=== PATIENT | male | born 1975 | race Caucasian/White ===

== ENCOUNTER 2023-08-10 12:26 | Inpatient (IN) | payer BC, SELFPAY ==
[2023-08-10] VITALS (9 sets, daily range): BP systolic 92–139; BP diastolic 59–84; BMI 33.9; BMI 33.8
--- NOTE | 2023-08-10 08:47 | EDRN ---
Dr. Gomez in room w/ pt.
--- NOTE | 2023-08-10 08:54 | ED.GENMED ---
History of Present Illness
General
Chief Complaint: Abdominal Pain
Source: patient and spouse
Exam Limitations: none
Time Seen by Provider: 08/10/23 08:42
Nursing documentation reviewed up to this point in time: agreed with
Travel History
Have you had any contact with someone who has COVID-19?: No
Do you have any symptoms of coronavirus? Fever > 100 degrees, chills, cough, shortness of breath, sore throat, loss of taste or smell, muscle aches, or headache?: No
History of Present Illness
History of Present Illness:
48-year-old male limited past medical history social drinker no prior abdominal surgeries, 48 hours fever chills nausea did have some loose bowel movement, with lower abdominal cramping mild shortness of breath, few months ago he had some blood in
his stool which he contributed to taking his zinc he stopped zinc and his blood in his stool likewise stopped, did not seek any formal medical treatment or evaluation for the bloody stools,
No sick contacts, he is accompanied by his spouse
Past History
Past History
ED Past Medical History: None
ED Past Surgical History: Negative Appendectomy, Bowel resection, Cardiac or Cholecystectomy
Social History
Tobacco: Non-smoker
Alcohol: Occasional
Drug: None
Personal:
Living: with family
Employment: Employed
Review of Systems
Review of Systems
Constitutional: Reports fever, fatigue and chills
Respiratory: Reports trouble breathing
Cardiac: Reports no symptoms
ABD/GI: Reports abdominal pain, nausea, vomiting, diarrhea and anorexia
: Reports no symptoms
Musculoskeletal: Reports no symptoms
Phy Exam
Physical Exam
Physical Exam:
Physical Exam
General: 48 male febrile looks uncomfortable
Neck: Dry lips
Heart: Tachycardia
Lungs: Faint crackle at the right
Abdomen: Tender in the left greater than right lower abdomen no guarding or
Neuro: alert and oriented. no focal neurological deficits
Skin: no rash
Psychiatric: well kept. interactive and cooperative
Extremities: no edema. no calf tenderness.
Course
Orders/Labs/Results
Orders:
Orders
08/10/23 08:54
CT Abd/Pel (IV only)-DH only Urgent
Comment:
Reason For Exam: fever pain
IV Insert/Care/Rem.- Treatment PRN
Stool Culture Urgent
VINNY Source: Feces/Stool
Specimen Description:
0.9% Sodium Chloride 1000 ml [Nss] 1,000 ml IV BOLUS
HYDROmorphone [Dilaudid] 1 mg IV NOW STA
Ketorolac [Toradol] 30 mg IV NOW STA
Ondansetron Injectable [Zofran] 4 mg IV NOW STA
08/10/23 08:55
Norovirus by PCR Urgent
VINNY Source: Feces/Stool
Specimen Description:
CR Chest - 2 Views Urgent
Comment:
Reason For Exam: fever
08/10/23 09:13
Complete Blood Count/With Diff Urgent
Comprehensive Metabolic Panel Urgent
Lactic Acid Urgent
Lipase Urgent
Blood Culture Q30M
VINNY Source: Blood/Venous
Specimen Description:
08/10/23 09:34
Acetaminophen [Tylenol] 1,000 mg PO NOW STA
08/10/23 09:44
Blood Culture Q30M
VINNY Source: Blood/Venous
Specimen Description:
08/10/23 10:58
Piperacillin/Tazo 3.375 Gram [Zosyn] 3.375 gram in 50 ml IV NOW
08/10/23 11:06
*ED ONLY* NSS 2000mL Bolus over 1 hr 0.9% Sodium Chloride 1000 ml [Nss] 2,000 ml IV BOLUS
Abnormal Lab Results
08/10/23
09:13
RBC 4.04 L 10^6/uL
(4.70-6.10)
Hgb 12.7 L g/dL
(13.0-18.0)
Hct 37.2 L %
(39.0-52.0)
MCH 31.4 H pg
(27.0-31.0)
MPV 11.8 H fL
(7.4-10.4)
Absolute Neuts (auto) 9.1 H 10^3/uL
(1.4-6.5)
Absolute Lymphs (auto) 0.6 L 10^3/uL
(1.2-3.4)
Neutrophils % 87.2 H %
(42.2-75.2)
Lymphocytes % 5.7 L %
(20.5-51.1)
Potassium 3.3 L mmol/L
(3.5-5.1)
BUN 21 H mg/dl
(9-20)
Glucose 123 H mg/dl
(70-99)
Total Bilirubin 1.6 H mg/dl
(0.2-1.3)
AST 81 H U/L
(17-59)
ALT 150 H U/L
(0-50)
Alkaline Phosphatase 170 H U/L
(38-126)
08/10/23 09:13
08/10/23 09:13
Vital Signs
Initial and Last Documented VS:
Initial Vital Signs
Temp Pulse Resp BP Pulse Ox
102.1 F H 123 20 117/75 94
08/10/23 08:35 08/10/23 08:35 08/10/23 08:35 08/10/23 08:35 08/10/23 08:35
Last Documented Vital Signs
Temp Pulse Resp BP Pulse Ox
102.5 F H 97 18 106/65 95
08/10/23 08:54 08/10/23 10:46 08/10/23 10:46 08/10/23 10:46 08/10/23 10:46
MDM/Problems Addressed
Differential Diagnosis Includes:
Colitis diverticulitis appendicitis biliary colic pneumonia norovirus
MDM/Problems Addressed:
Fever chills nausea
*Radiology
Radiology exam reviewed: other (Pending at this time)
*Critical Care Note
Total Time (30-74mins, 75-104mins- exclusive of procedures): 30
Update Note
Update Note:
11 AM update [address] report noted patient appears more ill than his labs and imaging has been having fevers not eating or drinking positive rigors, low threshold to admit
On exam patient still requiring oxygen, blood pressure is 92 systolic has received IV fluid bolus of 1 L will continue volume resuscitation antibiotics patient will require admission message sent to hospitalist
ED Attending Note
-
Portions of this chart may have been created with voice recognition software.� Occasional wrong word or��sound alike� substitutions may have occurred due to the inherent limitations of voice recognition software.
Discharge Plan
Departure
Patient Disposition: Admit
Date of Disposition: 08/10/23
Time of Disposition: 11:07
Admit to: IMU
Presentation/result/management discussed w/ accepting MD/DO: Hospitalist
Patient with high blood pressure during this ER visit?: No
Condition: Fair
Discharge Problem:
Diverticulitis, SIRS (systemic inflammatory response syndrome)
Prescriptions:
No Action
testosterone [AndroGel] 75 GM gel in metered-dose pump
1 applic topical DAILY
Referrals:
NONE,* [Family Provider] -
Interventions
Interventions:
*Risk Screen - Suicide Last Done: 08/10/23 09:03
*General Assessment Last Done: 08/10/23 09:03
*Neglect/Abuse Screening Last Done: 08/10/23 09:03
ED- Fall Risk Assessment Last Done: 08/10/23 09:03
*ED COVID-19 Vaccine History Last Done: 08/10/23 09:03
OG-Yqsyyd-Mkkpltvudn Assessment Last Done: 08/10/23 09:40
Discharge Date and Time
Print Language: NEPALI
[2023-08-10] MEDS: DILAUDID 1 MG IV (09:25)
[2023-08-10] MEDS: ZOFRAN 4 MG IV (09:25)
[2023-08-10] MEDS: NSS 1000 IV ×2 (09:25→14:40)
[2023-08-10] MEDS: TORADOL 30 MG IV (09:26)
[2023-08-10 09:41] LABS: % Basophils 0.7 % (0-2); % Immature Granulocytes 0.3 % (0-0.5); % Lymphocytes 5.7 % (20.5-51.1); % Monocytes 6.1 % (1.7-9.3); % Neutrophils 87.2 % (42.2-75.2); Absolute Basophils 0.1 10^3/uL (0-0.2); Absolute Lymphocytes 0.6 10^3/uL (1.2-3.4); Absolute Monocytes 0.6 10^3/uL (0.1-0.6); Absolute Neutrophils 9.1 10^3/uL (1.4-6.5); Hematocrit 37.2 % (39.0-52.0); Hemoglobin 12.7 g/dL (13.0-18.0); Mean Corp Hgb Conc. 34.1 g/dL (33.0-37.0); Mean Corpuscular Hgb 31.4 pg (27.0-31.0); Mean Corpuscular Volume 92.1 fL (80.0-94.0); Mean Platelet Volume 11.8 fL (7.4-10.4); Nucleated Red Blood Cells % 0 % (-); Platelet Count 147 10^3/uL (130-400); Red Blood Cell Count 4.04 10^6/uL (4.70-6.10); Red Cell Dist. Width 13.4 % (11.5-14.5); White Blood Cell Count 10.4 10^3/uL (4.8-10.8)
[2023-08-10 09:48] LABS: Lactic Acid 1.4 mmol/L (0.7-2.0)
[2023-08-10 09:51] LABS: ALT (SGPT) 150 U/L (0-50); AST (SGOT) 81 U/L (17-59); Albumin 3.8 g/dl (3.5-5.0); Alkaline Phosphatase 170 U/L (38-126); Blood Urea Nitrogen 21 mg/dl (9-20); Calcium 8.9 mg/dl (8.4-10.2); Carbon Dioxide 28 mmol/L (22-30); Chloride 98 mmol/L (98-107); Estimated Creatinine Clearance > 125 ml/min; Glucose 123 mg/dl (70-99); Lipase 124 U/L (23-300); Potassium 3.3 mmol/L (3.5-5.1); Sodium 135 mmol/L (135-145); Total Bilirubin 1.6 mg/dl (0.2-1.3); Total Protein 6.8 g/dl (6.3-8.2); eGFR > 60.00
[2023-08-10] MEDS: TYLENOL 1000 MG PO (10:11)
[2023-08-10] MEDS: ZOSYN 50 IV (11:37)
--- NOTE | 2023-08-10 11:41 | EDRN ---
Dr. Tan in room w/ pt at this time.
[2023-08-10] MEDS: NSS 2000 IV (11:45)
--- NOTE | 2023-08-10 12:00 | HPS.HSE ---
Family Physician
-
Family Physician: * NONE
Chief Complaint
-
abd pain, nausea, fever
History of Present Illness
Patient is a 48-year-old male with past medical history of testosterone deficiency on replacement therapy came to ER with having new onset of abdominal pain nausea and vomiting. Symptoms started on with patient having some umbilical area
discomfort. Later patient started to having high-grade fever. Patient was having some nausea without vomiting and have not been eating much for the last 2 3 days. Patient have history of similar episodes in the past and waited through weekend
when symptoms got worse. In ER patient denying having any lower abdominal discomfort not having any ongoing significant nausea. Patient is spiking fever. Denies of having any previous problems with liver/gallbladder. No previous history of
diverticular disease/diverticulitis.
Patient had some chest discomfort and epigastric area as well and felt to be related to reflux and burning related. Patient also borderline hypoxic in ER and was put on 2 L oxygen through nasal cannula. Denies having any productive cough or any
other issues.
Medical History
Past Medical History
Past Medical History: Reports Other
Additional Past Medical History:
Testosterone deficiency, Obesity
Past Surgical History: Reports Other
Social History
Tobacco: Non-smoker
Alcohol: Occasional
Drug: None
Family History
Family History: Not pertinent
Allergies / Home Medications
Allergies reflects when Allergies were last updated in [facility].
Home Medications with original date entered in [facility]
Allergy/Medication List:
Allergies
Allergy/AdvReac Type Severity Reaction Status Date / Time
No Known Allergies Allergy Verified 08/10/23 08:35
Home Medications
ascorbic acid (vitamin C) 1,000 mg tablet (Vitamin C) 3 g PO Daily Supplement 08/10/23
cholecalciferol (vitamin D3) 50 mcg (2,000 unit) tablet (Vitamin D3) 50 mcg PO DAILY Supplement 08/10/23
cyanocobalamin (vitamin B-12) 1,000 mcg tablet 2,000 mcg PO DAILY Supplement 08/10/23
Review of Systems
-
A 12 point ROS was completed and negative except as noted: Yes
Physical Exam
Vital Signs
Vital Signs
Temp Pulse Resp BP Pulse Ox
98.8 F 97 18 106/65 95
08/10/23 11:48 08/10/23 10:46 08/10/23 10:46 08/10/23 10:46 08/10/23 10:46
Physical Exam
General: No Apparent Distress
HEENT: Oxygen
Respiratory: Clear
Cardiac: S1/S2 and Regular Rhythm; No Murmur or Rub
GI: Soft, Normal Bowel Sounds and Tender (Minimal near umbilical area); No Organomegaly
Rectal: Deferred by Provider
Musculoskeletal: No Clubbing, No Cyanosis and No Edema
Skin: No Rash
Neuro: Awake, Alert, Oriented and Nonfocal/grossly intact
Laboratory Results
-
08/10/23 09:13
08/10/23 09:13
Laboratory Results
Lactic Acid 1.4 mmol/L (0.7-2.0) 08/10/23 09:13
Total Bilirubin 1.6 mg/dl (0.2-1.3) H 08/10/23 09:13
AST 81 U/L (17-59) H 08/10/23 09:13
ALT 150 U/L (0-50) H 08/10/23 09:13
Alkaline Phosphatase 170 U/L (38-126) H 08/10/23 09:13
Lipase 124 U/L (23-300) 08/10/23 09:13
Data Reviewed
-
CT Scan: Image Personally Visualized and interpreted, Report Reviewed by me and Discussed with Patient
Lab Data: Labs Reviewed by me and Discussed with Patient
Impression/Plan
-
1. Sigmoid diverticulitis
Sepsis
-New onset of abdominal pain/nausea/fever from
-No previous history of diverticular disease/diverticulitis
-Patient having high-grade fever and tachycardic in ER. Normal WBC
-CT abdomen pelvis showing sigmoid diverticulitis without complication
-Patient got dose of Zosyn in ER, switched to Levaquin and Flagyl
-Blood culture collected in ER
-Maintain on clear liquid diet and slow IVF
2. Acute diarrhea
-Denies having any episodes at home
-Got dose of Zosyn in ER, related?
-monitor for now. hold on sending stool test
3. Mild transaminitis
Elevated total bilirubin
Alcohol use
-Borderline elevated LFT and bilirubin level
-ALT 150 AST 81 total bili 1.6 ALP 170
-No major abnormalities in liver gallbladder on CT AP. Check liver gallbladder ultrasound
-Follow-up LFT in the morning
-Advised against alcohol use
4. Hypokalemia
-Mild, replace as needed
5. Elevated blood glucose
Obesity
-Glucose of 123, patient has not been eating much.
-Check A1c in morning
6. Testosterone deficiency
-Reported monthly testosterone replacement therapy, last dose in September
-Patient currently in process of establishing with new stone layout marker.
DVT prophylaxis -Lovenox
Full code
Total time spent : 78 mins
I personally saw and examined the patient.
I have reviewed all diagnostic interpretations and treatment plans as written.
Time includes patient management by me, time spent at the patients bedside, time to review lab and imaging results, discussing patient care, documentation in the medical record, and time spent with the family or caregiver and discussing care plan
with RN/Consultants.
[2023-08-10] MEDS: TYLENOL 650 MG PO ×2 (16:51→23:23)
--- NOTE | 2023-08-10 17:05 | PTCARENOTE ---
Patient with 101.1 temp, shaking and chills. Tylenol given at 1650.
[2023-08-10] MEDS: FLAGYL 500 MG 100 IV (17:29)
[2023-08-10] MEDS: LOVENOX 40 MG SC (17:30)
[2023-08-10] MEDS: LEVAQUIN 150 IV (18:33)
--- NOTE | 2023-08-11 00:02 | PTCARENOTE ---
Pt was c/o shivering and body aches. Temp 97.5, When doing VS, pt presented with SaO2 82% RA. tachypneic and c/o chest pressure/pain. EKG done and CONFERENCE ORGANIZER notify. Pt was placed on O2 6L and was wean down to 3L 95%. Pt was coughing. EKG showed ST. Covid
test done to rule out. Will cont with tx plan.
[2023-08-11 00:21] LABS: COVID-19 Antigen Negative (Negative)
[2023-08-11] MEDS: FLAGYL 500 MG 100 IV ×3 (01:05→17:01)
[2023-08-11] MEDS: NSS 1000 IV (05:37)
[2023-08-11 07:58] LABS: Hematocrit 32.8 % (39.0-52.0); Hemoglobin 11.2 g/dL (13.0-18.0); Mean Corp Hgb Conc. 34.1 g/dL (33.0-37.0); Mean Corpuscular Hgb 31.2 pg (27.0-31.0); Mean Corpuscular Volume 91.4 fL (80.0-94.0); Platelet Count 118 10^3/uL (130-400); Red Blood Cell Count 3.59 10^6/uL (4.70-6.10); Red Cell Dist. Width 14.1 % (11.5-14.5); White Blood Cell Count 10.6 10^3/uL (4.8-10.8)
[2023-08-11] MEDS: VITAMIN C 3000 MG PO (08:09)
[2023-08-11] MEDS: VITAMIN D3 (cholecalciferol) 50 MCG PO (08:09)
[2023-08-11] MEDS: VITAMIN B-12 2000 MCG PO (08:09)
[2023-08-11 08:21] VITALS: BP 118/76
[2023-08-11 08:36] LABS: ALT (SGPT) 122 U/L (0-50); AST (SGOT) 106 U/L (17-59); Alkaline Phosphatase 141 U/L (38-126); Blood Urea Nitrogen 22 mg/dl (9-20); Calcium 8.3 mg/dl (8.4-10.2); Carbon Dioxide 25 mmol/L (22-30); Chloride 102 mmol/L (98-107); Estimated Creatinine Clearance > 125 ml/min; Glucose 107 mg/dl (70-99); Potassium 3.2 mmol/L (3.5-5.1); Sodium 137 mmol/L (135-145); Total Bilirubin 1.6 mg/dl (0.2-1.3); Total Protein 5.7 g/dl (6.3-8.2); eGFR > 60.00
[2023-08-11 09:22] LABS: Glycohemoglobin (HgbA1c) 5.9 % (4.0-5.6)
[2023-08-11] MEDS: TYLENOL 650 MG PO ×3 (11:03→22:35)
--- NOTE | 2023-08-11 11:11 | W.PN.HOSP.TC ---
Today's Communication/Plan
-
see note
Assessment / Plan
Assessment / Plan
1. Sigmoid diverticulitis
Sepsis
-New onset of abdominal pain/nausea/fever from
-No previous history of diverticular disease/diverticulitis
-Patient having high-grade fever and tachycardic in ER. Normal WBC
-CT abdomen pelvis showing sigmoid diverticulitis without complication
-Blood culture remains neg
-maintain on levaquin and flagyl
-advancing to LR diet
2. Acute hypoxic resp insuff
-patient gets hypoxic when have fever/chills
-stop further IVF
-IV lasix 20mg x1
3. Acute diarrhea -resolved
-possibly zosyn related
4. Multiple Liver lesion
Mild transaminitis
Elevated total bilirubin
Alcohol use
-Borderline elevated LFT and bilirubin level
-ALT 150 AST 81 total bili 1.6 ALP 170
-No major abnormalities in liver gallbladder on CT AP. GB/US showing multiple liver lesion
-AFP check and MRI abd w/wo contrast ordered
-GI consulted for help
4. Hypokalemia
-Mild, replace as needed
5. Pre-diabetes
Obesity
-Glucose of 123, patient has not been eating much.
-Hbg a1c 5.9
-educated on weight loss/decreasing carb intake. advised to f/u with PCP post dischage.
6. Testosterone deficiency
-Reported monthly testosterone replacement therapy, last dose in September
-Patient currently in process of establishing with new authorization representative.
DVT prophylaxis -Lovenox
Full code
Case discussed with GI physician
Total time spent : 52 mins
Anticipated Discharge: 24 - 48 hours
Subjective/Interval History
-
Date of Service: August 11, 2023
continues to have chills
gets hypoxic when have chills/fever
feeling weak/lethragic
Objective Data
-
Labs:
Laboratory Results
08/11/23
07:28
WBC 10.6
Hgb 11.2 L
Hct 32.8 L
Plt Count 118 L
Sodium 137
Potassium 3.2 L
Chloride 102
Carbon Dioxide 25
BUN 22 H
Creatinine 0.7
Glucose 107 H
Calcium 8.3 L
Total Bilirubin 1.6 H
AST 106 H
ALT 122 H
Alkaline Phosphatase 141 H
Vital Signs:
Vital Signs
Temp Pulse Resp BP Pulse Ox
98.6 F 70 18 118/76 95
08/11/23 08:21 08/11/23 08:21 08/11/23 08:21 08/11/23 08:21 08/11/23 08:21
I&O
08/10/23 08/11/23 08/12/23
06:59 06:59 06:59
Intake Total 2865 / 2865
Balance 2865 / 2865
Review of Systems
-
Respiratory: Reports Trouble Breathing; Denies Cough
Cardiac: Reports No Symptoms
Abdomen/GI: Denies Abdominal Pain, Nausea or Diarrhea
Physical Exam
-
General: No Apparent Distress and Comfortable
HEENT: Negative Oxygen
Respiratory: Clear to Auscultation
Cardiac: Regular Rhythm and S1/S2; Negative Murmur or Rub
GI: Soft, Nontender and Normal Bowel Sounds
Musculoskeletal: No Edema
Neuro: Awake, Alert, Oriented, No Motor Deficits and Nonfocal/Grossly Intact
Psych: Calm
--- NOTE | 2023-08-11 11:41 | CM ---
Patient seen bedside with , Renee [phone], initial assessment completed. Patient resides with his in a two story home, 2 steps to enter. Patient denies DME, VN, or SNF. Patient confirms PCP as Brenda Childers in [facility],
confirms pharmacy in [facility]. Patient confirms prescription coverage, denies food insecurities at home. CM will continue to follow for discharge planning needs.
Plan; home no needs likely.
--- NOTE | 2023-08-11 12:33 | CON.GI ---
Consultation
-
Date/Time Consultation Requested: 08/11/23
Date/Time Consultation Performed: 08/11/23
Requesting Provider: Michael Tan
Performing Provider: Bing Rios
Reason for Consultation: Bing Rios
Medical History
Chief Complaint / HPI
Chief Complaint: Diverticulitis, elevated LFTs, abnormal liver lesions
History of Present Illness:
Berhane is a 48-year-old male with past medical history of testosterone deficiency on replacement therapy who presented to [facility] with complaints of nausea, vomiting and abdominal pain which started and became progressively
worse prompting him to seek care. He reports having high-grade fevers as well as anorexia over the last 2 to 3 days. Reports using NSAIDS a few times per week, approx 2-3 tablets per week for 'inflammation,' related to joint pain. Denies tylenol
use. Denies recent abx use. Does note taking Zinc supplements recently, then experiencing scant amounts of hematochezia, mostly just drops in the toilet bowel a few months ago, this stopped following cessation of zinc supplements. He states he
stopped taking his testosterone replacement therapy about 4 months ago, felt better with exercise and dietary modifications alone. Denies prior EGD or Colonoscopy. Denies family history of CRC, colon polyps, IBD or liver disease. Admits to a few
alcoholic beverages on the weekends with dinner.
Labs on arrival showed a hemoglobin of 12.7 with repeat today at 11.2, platelet count 147-->118, sodium 137, potassium 3.2, BUN 22, creatinine 0.7, A1c 5.9, T. bili 1.6, AST 106, ALT 122, alk phos 141.
He was tachycardic and febrile to 101.3 in the ER as well as transiently hypoxic with SpO2 of 82, requiring supplemental O2 via nasal cannula.
CT abdomen and with p.o. and IV contrast showed several hypodense irregular marginated hepatic lesions with suggestion of peripheral nodular enhancement likely benign hemangioma seen in the liver. Mild pericolonic stranding about the mid sigmoid
colon with scattered diverticula consistent with acute diverticulitis. There is also associated moderate wall thickening. The segment of the bowel involved measures approximately 4.5 cm. He subsequently had an abdominal ultrasound to better
evaluate these liver lesions which showed complex liver lesions measuring 1.4 x 1.4 x 1.6 in the right lobe and 2.4 x 2.1 x 2.4 in the right lobe and 2 point centimeters near the kevon hepatis. No intrahepatic or extrahepatic biliary ductal
dilatation. No evidence of cholelithiasis, abnormal gallbladder wall thickening, gallbladder distention or pericholecystic fluid present. Given multiple complex liver lesions indeterminate by ultrasound, it was recommended that patient have an
abdominal MRI liver mass protocol with and without IV contrast for more complete characterization.
Patient currently on Flagyl and Levaquin.
Social History
Alcohol: Occasional
Living: With Family
Family History
Family History: Reviewed & Not Pertinent
Allergies / Home Medications
Allergy/AdvReac Type Severity Reaction Status Date / Time
No Known Allergies Allergy Verified 08/10/23 08:35
�Medication �Instructions �Recorded
ascorbic acid (vitamin C) 1,000 mg 3 g PO Daily Supplement 08/10/23
tablet (Vitamin C)
cholecalciferol (vitamin D3) 50 50 mcg PO DAILY Supplement 08/10/23
mcg (2,000 unit) tablet (Vitamin
D3)
cyanocobalamin (vitamin B-12) 2,000 mcg PO DAILY Supplement 08/10/23
1,000 mcg tablet
Review of Systems
-
History Source: Patient
All other systems: A 12 pt ROS was Negative except as stated above in HPI
Vital Signs
Temp Pulse Resp BP Pulse Ox
98.6 F 70 18 118/76 95
08/11/23 08:21 08/11/23 08:21 08/11/23 08:21 08/11/23 08:21 08/11/23 08:21
Physical Exam
Exam
General: Well Developed, Well Nourished and Comfortable
HEENT: Normocephalic and Anicteric
Respiratory: Clear
Cardiac: S1/S2 and Regular Rhythm
GI: Soft, Non Tender, Non Distended and Normal Bowel Sounds
Skin: Warm and Dry
Neuro: Awake
Psych: Calm
Results
WBC 10.6 10^3/uL (4.8-10.8) 08/11/23 07:28
Hgb 11.2 g/dL (13.0-18.0) L 08/11/23 07:
Hct 32.8 % (39.0-52.0) L 08/11/23 07:
MCV 91.4 fL (80.0-94.0) 08/11/23 07:
Plt Count 118 10^3/uL (130-400) L 08/11/23 07:28
Absolute Neuts (auto) 9.1 10^3/uL (1.4-6.5) H 08/10/23 09:13
Sodium 137 mmol/L (135-145) 08/11/23 07:28
Potassium 3.2 mmol/L (3.5-5.1) L 08/11/23 07:28
Chloride 102 mmol/L (98-107) 08/11/23 07:28
Carbon Dioxide 25 mmol/L (22-30) 08/11/23 07:28
BUN 22 mg/dl (9-20) H 08/11/23 07:28
Creatinine 0.7 mg/dL (0.7-1.3) 08/11/23 07:
Calcium 8.3 mg/dl (8.4-10.2) L 08/11/23 07:
Total Bilirubin 1.6 mg/dl (0.2-1.3) H 08/11/23 07:28
AST 106 U/L (17-59) H 08/11/23 07:28
ALT 122 U/L (0-50) H 08/11/23 07:28
Alkaline Phosphatase 141 U/L (38-126) H 08/11/23 07:
Lipase 124 U/L (23-300) 08/10/23 09:13
Diagnostic Image Results: as per above
Prior GI Procedures: None
EGD:
Colonoscopy:
Assessment / Plan
-
Berhane is a 48 y.o. male w/ testosterone deficiency admitted with fever/chills/abdominal pain found to have acute sigmoid diverticulitis with elevated liver enzymes and abnormal imaging of the liver, with imaging revealing several complex cysts.
#Sigmoid diverticulitis
-blood cultures neg.
-c/w flagyl, levaquin
-Tmax 101.1 yesterday afternoon, has been afebrile since
-ADAT
-needs outpatient colonoscopy in 6-8 weeks
#Elevated transaminases
#Abnormal imaging of the liver
-Tbili 1.6, AST 106, ALT 122, Alk phos 141; lipase WNL
-AFP 1.10
-CT A/P revealed several hypodense irregular marginated hepatic lesions with suggestion of peripheral nodular enhancement, f/u US showing complex hepatic cysts; MRI Abdomen completed, read is pending-- I suspect these represent hepatic abscesses in
the setting of acute diverticulitis vs. benign pathology, will await final read
-no evidence of cholelithiasis, or biliary ductal dilation
-check hepatitis panel, will hold off on additional serologic studies and trend over the next 24 hours, suspect elevated in setting of acute infectious process/possible hepatic abscesses
#Acute Hypoxic Respiratory Failure
-CXR normal
-intermittently hypoxic since arrival requiring supplemental O2, received 1 dosoe of lasix
-will defer workup to primary team but would check sputum culture, BNP, t/c TTE
#Intermittent self-limiting hematochezia
-Resolved, needs colonoscopy, overdue
-hemoglobin 11.2 from 12.7, suspect some dilutional component. No active bleeding at this time. Will plan for outpatient colonoscopy in 6-8 weeks
#CRC screening
-Overdue
Data Reviewed
-
CT Scan: Report Reviewed by me
Ultrasound: Report Reviewed by me
MRI: Report Reviewed by me
-
-
Thank you for consultation and allowing me to participate in the patient's care. Please call the executive communications manager GI physician during the after hours with any questions or concerns.
[2023-08-11 15:22] VITALS: BP 141/77
[2023-08-11] MEDS: LOVENOX 40 MG SC (17:00)
[2023-08-11] MEDS: LEVAQUIN 150 IV (18:04)
--- NOTE | 2023-08-11 22:40 | PTCARENOTE ---
Pt was woken up for VS, pox 86%, P sat up in bed and took deep breathes, pox continues to range from 85-88% on RA. Placed on 4L NC. Pt appears flushed, temp 103. Denies cp, dizziness or sob. Divine ELLER notified, no new orders at this time. Pt
medicated with tylenol. call hadley within reach.
[2023-08-11 23:20] VITALS: BP 117/74
[2023-08-12] VITALS (12 sets, daily range): BP systolic 117–142; BP diastolic 71–79
[2023-08-12] MEDS: FLAGYL 500 MG 100 IV ×2 (02:47→09:24)
[2023-08-12] MEDS: VITAMIN C 3000 MG PO (08:00)
[2023-08-12] MEDS: VITAMIN B-12 2000 MCG PO (08:00)
[2023-08-12] MEDS: VITAMIN D3 (cholecalciferol) 50 MCG PO (08:00)
[2023-08-12] MEDS: TYLENOL 650 MG PO ×2 (08:03→17:07)
[2023-08-12 08:31] LABS: Hematocrit 35.4 % (39.0-52.0); Hemoglobin 11.8 g/dL (13.0-18.0); Mean Corp Hgb Conc. 33.3 g/dL (33.0-37.0); Mean Corpuscular Hgb 30.9 pg (27.0-31.0); Mean Corpuscular Volume 92.7 fL (80.0-94.0); Mean Platelet Volume 12.2 fL (7.4-10.4); Platelet Count 114 10^3/uL (130-400); Red Blood Cell Count 3.82 10^6/uL (4.70-6.10); Red Cell Dist. Width 14.2 % (11.5-14.5); White Blood Cell Count 9.9 10^3/uL (4.8-10.8)
--- NOTE | 2023-08-12 09:02 | W.PN.HOSP.TC ---
Today's Communication/Plan
-
see note
Assessment / Plan
Assessment / Plan
MRI abdomen
1. 10 RIM-ENHANCING CYSTIC HEPATIC MASSES in the right lobe of the liver containing enhancing internal septations (the largest 6.1 cm). Diagnostic possibilities are (1) MULTIPLE HEPATIC ABSCESSES or (2) cystic hepatic metastases.
2. Mild hepatosplenomegaly.
3. Small 1.0 cm lesion in the right retroperitoneum posterior to the right kidney suspicious for a small soft tissue tumor or septic embolus.

1. Sigmoid diverticulitis
Presumed multiple hepatic abscess vs other
Sepsis
-New onset of abdominal pain/nausea/fever from
-No previous history of diverticular disease/diverticulitis - patent does stated of having episode of milder lower abd pain which subsided in past.
-Patient having high-grade fever and tachycardic in ER. Normal WBC
-CT abdomen pelvis showing sigmoid diverticulitis without complication
-Blood culture remains neg.
-would like to repeat blood cs if spikes fever, yield will be low as patient already on abx
-ID consulted for help
-Possibly would help with drainage of larger pocket. MRI images reviewed and has smaller scattered collection/lesion which likely not amenable to individual drainage/sampling. Will need to be treated with prolonged abx in my opinion. Await GI and ID
evaluation today and will discuss. Of note AFP 1.1 only.
2. Acute hypoxic resp insuff
-patient gets hypoxic when have fever/chills
-stop further IVF
-if hepatic lesion suspected to be mass, will need to r/o VTE
3. Acute diarrhea -resolved
-possibly zosyn related
4. Multiple Liver lesion
Mild transaminitis
Elevated total bilirubin
Alcohol use
-Borderline elevated LFT and bilirubin level
-ALT 150 AST 81 total bili 1.6 ALP 170
-No major abnormalities in liver gallbladder on CT AP.
-GB/US showing multiple liver lesion. MRI report as above
-AM LFT result pending
4. Hypokalemia
-Mild, replace as needed
5. Pre-diabetes
Obesity
-Glucose of 123, patient has not been eating much.
-Hbg a1c 5.9
-educated on weight loss/decreasing carb intake. advised to f/u with PCP post dischage.
6. Testosterone deficiency
-Reported monthly testosterone replacement therapy, last dose in September
-Patient currently in process of establishing with new logistic manager.
DVT prophylaxis -Lovenox
Full code
Anticipated Discharge: > 48 hours
Subjective/Interval History
-
Date of Service: August 12, 2023
patient continues to remains febrile in night
no appetite
denies nausea
Objective Data
-
Labs:
Laboratory Results
08/12/23
07:22
WBC 9.9
Hgb 11.8 L
Hct 35.4 L
Plt Count 114 L
Sodium Pending
Potassium Pending
Chloride Pending
Carbon Dioxide Pending
BUN Pending
Creatinine Pending
Glucose Pending
Calcium Pending
Total Bilirubin Pending
AST Pending
ALT Pending
Alkaline Phosphatase Pending
Vital Signs:
Vital Signs
Temp Pulse Resp BP Pulse Ox
100.3 F 98 20 135/78 92
08/12/23 07:47 08/12/23 07:47 08/12/23 07:47 08/12/23 07:47 08/12/23 07:47
I&O
08/11/23 08/12/23 08/13/23
06:59 06:59 06:59
Intake Total 2865 / 2865 1310 / 1310
Balance 2865 / 2865 1310 / 1310
Review of Systems
-
Respiratory: Reports No Symptoms
Cardiac: Reports No Symptoms
Abdomen/GI: Reports No Symptoms
Physical Exam
-
General: No Apparent Distress and Comfortable
HEENT: Negative Oxygen
Respiratory: Clear to Auscultation
Cardiac: Regular Rhythm and S1/S2; Negative Murmur or Rub
GI: Soft, Nontender and Normal Bowel Sounds
Musculoskeletal: No Edema
Neuro: Awake, Alert, Oriented, No Motor Deficits and Nonfocal/Grossly Intact
Psych: Calm
[2023-08-12 09:13] LABS: ALT (SGPT) 112 U/L (0-50); AST (SGOT) 75 U/L (17-59); Alkaline Phosphatase 184 U/L (38-126); Blood Urea Nitrogen 19 mg/dl (9-20); Calcium 8.6 mg/dl (8.4-10.2); Carbon Dioxide 27 mmol/L (22-30); Chloride 100 mmol/L (98-107); Estimated Creatinine Clearance > 125 ml/min; Glucose 96 mg/dl (70-99); Potassium 3.1 mmol/L (3.5-5.1); Sodium 139 mmol/L (135-145); Total Bilirubin 1.4 mg/dl (0.2-1.3); Total Protein 5.7 g/dl (6.3-8.2); eGFR > 60.00
[2023-08-12] MEDS: KCL 40 MEQ PO (09:24)
--- NOTE | 2023-08-12 09:56 | W.PN.GI.CBS2 ---
Today's Communication / Plan
-
ID consulted. Possible IR-guided drainage of hepatic abscesses, if able. Discuss antibiotic regimen. Needs outpatient colonoscopy in 6-8 weeks.
Assessment / Plan
-
Berhane is a 48 y.o. male w/ testosterone deficiency admitted with fever/chills/abdominal pain found to have acute sigmoid diverticulitis with elevated liver enzymes and abnormal imaging of the liver, with imaging revealing several complex cysts.
#Sigmoid diverticulitis c/b hepatic abscesses
-blood cultures neg; currently on flagyl/levaquin, ineffective for hepatic abscesses
-ID consulted, will defer to them but would suspect needs zosyn or meropenem
-repeat blood cultures pending
-agree with drainage given ongoing fevers, if accessible
-needs outpatient colonoscopy in 6-8 weeks
#Elevated transaminases
#Abnormal imaging of the liver
-Tbili 1.6, AST 106, ALT 122, Alk phos 141; lipase WNL; mild improvement today
-AFP 1.10
-CT A/P revealed several hypodense irregular marginated hepatic lesions with suggestion of peripheral nodular enhancement, f/u US showing complex hepatic cysts; MRI Abdomen completed, read is pending-- I suspect these represent hepatic abscesses in
the setting of acute diverticulitis vs. benign pathology
-MRI w/w/o contrast 10 rim-enhancing hepatic abscceses vs. mets-- I suspect abscesses in the setting of acute diverticulitis
Additional findings of 1.0 cm right retroperitoneal small soft tissue tumor vs. septic embolus
-no evidence of cholelithiasis, or biliary ductal dilation
#Acute Hypoxic Respiratory Failure
-CXR normal
-intermittently hypoxic since arrival requiring supplemental O2, received 1 dosoe of lasix
-will defer workup to primary team but would check sputum culture, BNP, t/c TTE
#Intermittent self-limiting hematochezia
-Resolved, needs colonoscopy, overdue
-hemoglobin 11.2 from 12.7, suspect some dilutional component. No active bleeding at this time. Will plan for outpatient colonoscopy in 6-8 weeks
#CRC screening
-Overdue
Subjective
Subjective
Date of Service: August 12, 2023
Patient seen in follow-up today. Overall, doing well. He is very overwhelmed with his current clinical picture but not having any abdominal pain, nausea or vomiting. MRI indicates hepatic lesions are likely abscesses, ID consulted. Tmax 103 @ 23:20
yesterday. He had a low-grade fever of 100.3 this morning.
Objective
Data Reviewed
Laboratory Data:
Laboratory Results
08/12/23 07:22
08/12/23 07:22
Laboratory Results
Total Bilirubin 1.4 mg/dl (0.2-1.3) H 08/12/23 07:22
AST 75 U/L (17-59) H 08/12/23 07:22
ALT 112 U/L (0-50) H 08/12/23 07:22
Alkaline Phosphatase 184 U/L (38-126) H 08/12/23 07:22
Lipase 124 U/L (23-300) 08/10/23 09:13
Vital Signs and I&O:
Vital Signs
Temp Pulse Resp BP Pulse Ox
100.3 F 98 20 135/78 92
08/12/23 07:47 08/12/23 07:47 08/12/23 07:47 08/12/23 07:47 08/12/23 07:47
I&O
08/11/23 08/12/23 08/13/23
06:59 06:59 06:59
Intake Total 2865 / 2865 1310 / 1310
Balance 2865 / 2865 1310 / 1310
Physical Exam
Physical Exam
GENERAL: In no acute distress, appears comfortable
HEENT: no scleral icterus, mucous membranes moist, OP clear
RESP: Nonlabored respirations, clear to ausculation, b/l
CV: RRR, S1/S2
ABDOMEN: +BS; soft, non-tender and non-distended; no rebound or guarding
EXT: No LE edema, b/l
SKIN: Dry, warm
NEURO: AAOx3
--- NOTE | 2023-08-12 13:05 | CON.ID ---
Consultation
-
Date/Time Consultation Requested: 08/11/23 18:16
Date/Time Consultation Performed: 08/11/23 13:05
Requesting Provider: Dr Tan
Performing Provider: Dr Hernandez
Reason for Consultation: hepatic abscesses
Chief Complaint / Past History
Chief Complaint
abd pain, nausea, fever
History of Present Illness
Mr Dawn is a 48 year old male with history of Testosterone deficiency on replacement with gel (never injections) who presented here 08/09 for new onset abdominal pain, nausea, vomiting, anorexia, and fever. Reports similar episodes in the past.
No history of divertiuclosis/itis. Some epigastric abdominal pain and burning also noted. No rn long term care international travel to developing nations. 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 Denies ever having sex with other men. No previous colonoscopies. No recent
dental work needed. Never told he had bacteremia. 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
Since arrival here patient spiking fevers to tmax of 103, bp stable, wbc initially 10.4 now 9.9 there was l shift on arrival not rechecked since, cr 0.8, t bili on arrival 1.6 now 1.4, ast 81 now 75, alt 150 now 112, alk phos 170 now 184, afp 1.1
which is undetectable, hep a/b/c panel pending, abd MRI: 1- cystic hepatic masses with internal septations, IR is evaluating if one can be aspirated for culture, Small 1.0 cm lesion in the right retroperitoneum posterior to the right kidney
suspicious for a small soft tissue tumor or septic embolus.
Past History
Additional Past Medical History:
Testosterone deficiency, Obesity
Additional Past Surgical History:
wisdom teeth
sinus polyp removal
Allergy History:
No Known Allergies Allergy (Verified 08/10/23 08:35)
Medications Reviewed: Yes
Social History
Tobacco: Non-Smoker
Alcohol: Occasional
Drug: None
Family History
Family History: Not Pertinent
Review of Systems
Review of Systems
General: Fever and Chills
All systems: All other systems were reviewed and were negative
Vital Signs
Temp Pulse Resp BP Pulse Ox
98.2 F 98 20 135/78 92
08/12/23 11:09 08/12/23 07:47 08/12/23 07:47 08/12/23 07:47 08/12/23 07:47
Physical Exam
Physical Exam
Constitutional: No Acute Distress
Cardiovascular: Regular Rate, S1/S2 and Murmur (diffuse, seems loudest RUSB); Negative Rub
Pulmonary: Clear and Symmetric; Negative Wheezes, Rales or Rhonchi
Gastrointestinal: Soft, Non Tender, Non Distended and Normal Bowel Sounds
Extremities: Splinter Hemorrhage (L hand)
Skin: Warm and Dry; Negative Rash or Jaundice
Neurological: Awake
Lab / Diagnostic Study Results
08/12/23 07:22
08/12/23 07:22
Abs Immat Gran (auto) 0.0 10^3/uL (0-0.05) 08/10/23 09:13
Absolute Neuts (auto) 9.1 10^3/uL (1.4-6.5) H 08/10/23 09:13
Absolute Lymphs (auto) 0.6 10^3/uL (1.2-3.4) L 08/10/23 09:13
Absolute Monos (auto) 0.6 10^3/uL (0.1-0.6) 08/10/23 09:13
Absolute Basos (auto) 0.1 10^3/uL (0-0.2) 08/10/23 09:13
Immature Gran % 0.3 % (0-0.5) 08/10/23 09:13
Neutrophils % 87.2 % (42.2-75.2) H 08/10/23 09:13
Lymphocytes % 5.7 % (20.5-51.1) L 08/10/23 09:13
Monocytes % 6.1 % (1.7-9.3) 08/10/23 09:13
Eosinophils % 0.0 % (0-6) 08/10/23 09:13
Basophils % 0.7 % (0-2) 08/10/23 09:13
Lactic Acid Cancelled 08/11/23 01:12
Microbiology Results
Micro:
08/10/23 09:44 Blood Culture - Preliminary
Blood/Venous No Growth in 48 hours- Final report to follow
08/10/23 09:13 Blood Culture - Preliminary
Blood/Venous No Growth in 48 hours- Final report to follow
Assessment / Plan
Hepatic Abscesses
Exogenous Testosterone use
- blood cultures x2 in progress
- TTE (splinter hemorrahage and new murmur)
- agree with aspiration for source control and culture - drain placement if feasible
- aerobic and anaerobic cultures to be sent
- no risk factors for amebic liver abscesses, morphology not suggestive of echinococcus
- start ceftriaxone and oral metronidazole; if possible may eventually switch to oral levaquin/metro to finish course
Care Review
Plan reviewed with: Physician (Dr Daigle and Dr Tan - aspriation)
[2023-08-12 13:45] LABS: INR 1.15; PT 14.8 Sec (11.4-14.6)
[2023-08-12] MEDS: ROCEPHIN 2000 MG IV (14:11)
[2023-08-12] MEDS: STERILE WATER FOR INJECTION 20 ML IV (14:11)
--- NOTE | 2023-08-12 15:46 | CM ---
Patient seen bedside, reports no needs to CM at this time. CM will continue to be available, will follow for discharge planning needs.
Plan; home no needs likely.
--- NOTE | 2023-08-12 17:04 | PTCARENOTE ---
Pt received from IR s/p drainage of hepatic abscess. BENY drain from R flank. Dressing CDI. Pt complaining of 6/10 pain from procedure site.
[2023-08-12] MEDS: FLAGYL 500 MG PO (17:07)
[2023-08-12] MEDS: LOVENOX 40 MG SC (17:07)
[2023-08-12] MEDS: TORADOL 15 MG IV (18:16)
[2023-08-13] MEDS: FLAGYL 500 MG PO ×4 (00:18→23:45)
[2023-08-13] MEDS: TYLENOL 650 MG PO ×2 (00:18→23:45)
[2023-08-13 03:06] VITALS: BP 120/74
[2023-08-13 07:01] LABS: Hematocrit 33.2 % (39.0-52.0); Hemoglobin 11.6 g/dL (13.0-18.0); Mean Corp Hgb Conc. 34.9 g/dL (33.0-37.0); Mean Corpuscular Volume 88.8 fL (80.0-94.0); Mean Platelet Volume 11.6 fL (7.4-10.4); Platelet Count 153 10^3/uL (130-400); Red Blood Cell Count 3.74 10^6/uL (4.70-6.10); Red Cell Dist. Width 14.5 % (11.5-14.5); White Blood Cell Count 10.8 10^3/uL (4.8-10.8)
[2023-08-13 07:18] LABS: ALT (SGPT) 90 U/L (0-50); AST (SGOT) 59 U/L (17-59); Albumin 3.1 g/dl (3.5-5.0); Alkaline Phosphatase 200 U/L (38-126); Blood Urea Nitrogen 21 mg/dl (9-20); Calcium 8.9 mg/dl (8.4-10.2); Carbon Dioxide 27 mmol/L (22-30); Chloride 99 mmol/L (98-107); Estimated Creatinine Clearance > 125 ml/min; Glucose 105 mg/dl (70-99); Potassium 2.9 mmol/L (3.5-5.1); Sodium 136 mmol/L (135-145); Total Bilirubin 1.2 mg/dl (0.2-1.3); Total Protein 5.9 g/dl (6.3-8.2); eGFR > 60.00
[2023-08-13 07:35] VITALS: BP 136/82
[2023-08-13] MEDS: TORADOL 15 MG IV ×2 (09:10→15:15)
[2023-08-13] MEDS: VITAMIN C 3000 MG PO (09:13)
[2023-08-13] MEDS: VITAMIN D3 (cholecalciferol) 50 MCG PO (09:13)
[2023-08-13] MEDS: KCL 40 MEQ PO ×2 (09:13→13:30)
[2023-08-13] MEDS: VITAMIN B-12 2000 MCG PO (09:13)
--- NOTE | 2023-08-13 09:34 | W.PN.HOSP.TC ---
Today's Communication/Plan
-
f/u fluid cs report
continue abx
Assessment / Plan
Assessment / Plan
MRI abdomen
1. 10 RIM-ENHANCING CYSTIC HEPATIC MASSES in the right lobe of the liver containing enhancing internal septations (the largest 6.1 cm). Diagnostic possibilities are (1) MULTIPLE HEPATIC ABSCESSES or (2) cystic hepatic metastases.
2. Mild hepatosplenomegaly.
3. Small 1.0 cm lesion in the right retroperitoneum posterior to the right kidney suspicious for a small soft tissue tumor or septic embolus.

1. Sigmoid diverticulitis
Presumed multiple hepatic abscess vs other
Sepsis
-New onset of abdominal pain/nausea/fever from
-No previous history of diverticular disease/diverticulitis - patent does stated of having episode of milder lower abd pain which subsided in past.
-Patient having high-grade fever and tachycardic in ER. Normal WBC
-CT abdomen pelvis showing sigmoid diverticulitis without complication
-Blood culture remains neg.
-s/p IRAD drainage of largest abscess pocket - 30cc purulent material drained, BENY drain in place - fluid culture report pending - gram stain showing gram neg bacilli
-on rocephin and flagyl, continue
2. Acute hypoxic resp insuff - improved
-patient gets hypoxic when have fever/chills
-stop further IVF
-if hepatic lesion suspected to be mass, will need to r/o VTE
3. Acute diarrhea -resolved
-possibly zosyn related
4. Multiple Liver lesion
Mild transaminitis
Elevated total bilirubin
Alcohol use
-Borderline elevated LFT and bilirubin level
-ALT 150 AST 81 total bili 1.6 ALP 170
-No major abnormalities in liver gallbladder on CT AP.
-GB/US showing multiple liver lesion. MRI report as above
4. Hypokalemia
-replace with 80meq oral K today
5. Pre-diabetes
Obesity
-Glucose of 123, patient has not been eating much.
-Hbg a1c 5.9
-educated on weight loss/decreasing carb intake. advised to f/u with PCP post dischage.
6. Testosterone deficiency
-Reported monthly testosterone replacement therapy, last dose in September
-Patient currently in process of establishing with new record center coordinator.
DVT prophylaxis -Lovenox
Full code
Anticipated Discharge: 24 - 48 hours
Subjective/Interval History
-
Date of Service: August 13, 2023
subjectively feeling better
still febrile in night
no other issues
Objective Data
-
Labs:
Laboratory Results
08/13/23
06:14
WBC 10.8
Hgb 11.6 L
Hct 33.2 L
Plt Count 153 D
Sodium 136
Potassium 2.9 L
Chloride 99
Carbon Dioxide 27
BUN 21 H
Creatinine 0.7
Glucose 105 H
Calcium 8.9
Total Bilirubin 1.2
AST 59
ALT 90 H
Alkaline Phosphatase 200 H
Vital Signs:
Vital Signs
Temp Pulse Resp BP Pulse Ox
98.8 F 97 17 136/82 95
08/13/23 07:35 08/13/23 07:35 08/13/23 07:35 08/13/23 07:35 08/13/23 07:35
I&O
08/12/23 08/13/23 08/14/23
06:59 06:59 06:59
Intake Total 1310 / 1310 2049
Output Total
Balance 1310 / 1310 2034
Review of Systems
-
Respiratory: Reports No Symptoms
Cardiac: Reports No Symptoms
Abdomen/GI: Reports No Symptoms
Physical Exam
-
General: No Apparent Distress and Comfortable
HEENT: Negative Oxygen
Respiratory: Clear to Auscultation
Cardiac: Regular Rhythm and S1/S2; Negative Murmur or Rub
GI: Soft, Nontender and Normal Bowel Sounds
Musculoskeletal: No Edema
Neuro: Awake, Alert, Oriented, No Motor Deficits and Nonfocal/Grossly Intact
Psych: Calm
--- NOTE | 2023-08-13 09:59 | W.PN.GI.CBS2 ---
Today's Communication / Plan
-
Continue abx and endocarditis workup per ID. Needs colonoscopy in 6-8 weeks. GI will sign off, outpatient follow-up scheduled. Please call with questions.
Assessment / Plan
-
Berhane is a 48 y.o. male w/ testosterone deficiency admitted with fever/chills/abdominal pain found to have acute sigmoid diverticulitis with hepatic abscesses and c/f septic emboli.
#Sigmoid diverticulitis c/b hepatic abscesses
-ID following, currently on rocephin/flagyl
-s/p IR drainage, culture pending, gram stain positive for gram neg. bacili; +BENY drain
-repeat blood cultures pending, initial BCx NGTD
-needs outpatient colonoscopy in 6-8 weeks, outpatient follow-up scheduled with GI
#Elevated transaminases--improving
#Abnormal imaging of the liver
-AFP 1.10
-CT A/P revealed several hypodense irregular marginated hepatic lesions with suggestion of peripheral nodular enhancement, f/u US showing complex hepatic cysts; MRI Abdomen completed, read is pending-- I suspect these represent hepatic abscesses in
the setting of acute diverticulitis vs. benign pathology
-MRI w/w/o contrast 10 rim-enhancing hepatic abscesses vs. mets-- I suspect abscesses in the setting of acute diverticulitis, s/p IR drainage of largest abscess +BENY drain
Additional findings of 1.0 cm right retroperitoneal small soft tissue tumor vs. septic embolus--> ECHO pending, ID following, c/f endocarditis with splinter hemorrhages and new murmur on physical exam
-no evidence of cholelithiasis, or biliary ductal dilation
#Acute Hypoxic Respiratory Failure--t/c dedicated CT chest due to c/f septic emboli and unclear etiology of hypoxia
-CXR normal
-intermittently hypoxic since arrival requiring supplemental O2, received 1 dose of lasix
-will defer workup to primary team but would check sputum culture, BNP, t/c TTE
#Intermittent self-limiting hematochezia
-Resolved, needs colonoscopy, overdue
-hemoglobin 11.2 from 12.7, suspect some dilutional component. No active bleeding at this time. Will plan for outpatient colonoscopy in 6-8 weeks
#CRC screening
-Overdue
Will defer remaining endocarditis workup and antibiotic regimen/duration to ID. LFTs improving. In regards to his diverticulitis, that has also improved. It is unclear if this diverticulitis was truly the cause of his symptoms or if the septic
emboli was the inciting event that caused his acute pain. Regardless, he needs GI follow-up and colonoscopy. He is scheduled to see us in the office after discharge, at which point we will schedule him for colonoscopy.
Subjective
Subjective
Date of Service: August 13, 2023
Patient able to go to IR yesterday with 30 cc purulent material drained from the largest hepatic abscess with BENY drain in place. Fluid cultures pending, prelim gram stain + gram neg bacilli. Needs ECHO due to pertinent physical exam findings and
concern for septic emboli.
Objective
Data Reviewed
Laboratory Data:
Laboratory Results
08/13/23 06:14
08/13/23 06:14
Laboratory Results
PT 14.8 Sec (11.4-14.6) H 08/12/23 13:19
INR 1.15 08/12/23 13:19
Total Bilirubin 1.2 mg/dl (0.2-1.3) 08/13/23 06:14
AST 59 U/L (17-59) 08/13/23 06:14
ALT 90 U/L (0-50) H 08/13/23 06:14
Alkaline Phosphatase 200 U/L (38-126) H 08/13/23 06:14
Lipase 124 U/L (23-300) 08/10/23 09:13
Vital Signs and I&O:
Vital Signs
Temp Pulse Resp BP Pulse Ox
98.8 F 97 17 136/82 95
08/13/23 07:35 08/13/23 07:35 08/13/23 07:35 08/13/23 07:35 08/13/23 07:35
I&O
08/12/23 08/13/23 08/14/23
06:59 06:59 06:59
Intake Total 1310 / 1310 2049
Output Total
Balance 1310 / 1310 2034
Physical Exam
Physical Exam
GENERAL: In no acute distress, appears comfortable
ABDOMEN: +BS; soft, non-tender and non-distended; no rebound or guarding
[2023-08-13] MEDS: STERILE WATER FOR INJECTION 20 ML IV (13:31)
[2023-08-13] MEDS: ROCEPHIN 2000 MG IV (13:31)
[2023-08-13 15:30] VITALS: BP 129/80
[2023-08-13] MEDS: LOVENOX 40 MG SC (17:47)
[2023-08-13 18:57] LABS: Hepatitis B Surface Antigen Negative (Negative)
[2023-08-13 19:15] LABS: Hepatitis B Core Ab, Total Negative (Negative); Hepatitis B Surface Antibody Negative; Hepatitis C Antibody Negative (Negative)
[2023-08-13 19:22] LABS: Hepatitis A Antibody, Total Negative (Negative)
[2023-08-13 23:40] VITALS: BP 133/84
[2023-08-14 06:45] LABS: Hematocrit 31.9 % (39.0-52.0); Hemoglobin 11.2 g/dL (13.0-18.0); Mean Corp Hgb Conc. 35.1 g/dL (33.0-37.0); Mean Corpuscular Hgb 30.8 pg (27.0-31.0); Mean Corpuscular Volume 87.6 fL (80.0-94.0); Mean Platelet Volume 11.5 fL (7.4-10.4); Platelet Count 175 10^3/uL (130-400); Red Blood Cell Count 3.64 10^6/uL (4.70-6.10); Red Cell Dist. Width 14.3 % (11.5-14.5); White Blood Cell Count 12.3 10^3/uL (4.8-10.8)
[2023-08-14 07:15] LABS: ALT (SGPT) 77 U/L (0-50); AST (SGOT) 57 U/L (17-59); Albumin 2.9 g/dl (3.5-5.0); Alkaline Phosphatase 204 U/L (38-126); Blood Urea Nitrogen 23 mg/dl (9-20); Calcium 8.5 mg/dl (8.4-10.2); Carbon Dioxide 26 mmol/L (22-30); Chloride 100 mmol/L (98-107); Estimated Creatinine Clearance > 125 ml/min; Glucose 100 mg/dl (70-99); Potassium 3.3 mmol/L (3.5-5.1); Sodium 136 mmol/L (135-145); Total Bilirubin 1.1 mg/dl (0.2-1.3); Total Protein 5.8 g/dl (6.3-8.2); eGFR > 60.00
[2023-08-14 07:58] VITALS: BP 125/81
[2023-08-14] MEDS: VITAMIN D3 (cholecalciferol) 50 MCG PO (08:45)
[2023-08-14] MEDS: VITAMIN B-12 2000 MCG PO (08:46)
[2023-08-14] MEDS: FLAGYL 500 MG PO ×3 (08:46→23:47)
[2023-08-14] MEDS: VITAMIN C 3000 MG PO (08:46)
--- NOTE | 2023-08-14 12:08 | W.PN.ID1 ---
Date of Service
Date of Service: August 14, 2023
Today's Communication
- PICC line
- continue ceftriaxone and oral metronidazole tentatively x6 more weeks
- follow up in office in 3-4 weeks
Assessment / Plan
Hepatic Abscesses - multifocal
- blood cultures x2 in progress no growth to date
- abscess culture gram stain rare GNR, no growth to date - remains preliminary
- TTE - no vegetations
- when drain output consistent </= 15 ccs x3 days then patient to call IR for reassessment
- agree with eventual colonoscopy
- PICC line
- continue ceftriaxone and oral metronidazole tentatively x6 more weeks
- follow up in office in 3-4 weeks
Chief Complaint
-: Other (hepatic abscess)
Subjective / Review of Systems
fever curve overall improved
bp stable
small increase in wbc count today
had about 25 ccs of purulent fluid removed with IR, numerous other abscesses noted and not drained
notes less exercise tolerance
otherwise feels well
Vital Signs / Physical Exam
Vital Signs
Vital Signs
Temp Pulse Resp BP Pulse Ox
100.0 F 93 16 125/81 98
08/14/23 07:58 08/14/23 07:58 08/14/23 07:58 08/14/23 07:58 08/14/23 07:58
Physical Exam
Constitutional: No Acute Distress
Cardiovascular: Regular Rate and S1/S2; Negative Murmur or Rub
Pulmonary: Clear and Symmetric; Negative Wheezes or Rales
Gastrointestinal: Soft, Non Tender, Non Distended and Normal Bowel Sounds
Skin: Warm and Dry; Negative Rash or Jaundice
Lines: Other (drain - serosanguinous - small fluid)
Objective Data
Lab Data
Lab Results
08/14/23 06:26
08/14/23 06:26
PT 14.8 Sec (11.4-14.6) H 08/12/23 13:19
INR 1.15 08/12/23 13:19
Estimated Creat Clear > 125 ml/min 08/14/23 06:26
Lactic Acid Cancelled 08/11/23 01:12
Total Bilirubin 1.1 mg/dl (0.2-1.3) 08/14/23 06:26
AST 57 U/L (17-59) 08/14/23 06:26
ALT 77 U/L (0-50) H 08/14/23 06:26
Alkaline Phosphatase 204 U/L (38-126) H 08/14/23 06:26
Most recent labs reviewed.
Micro Results:
08/10/23 09:44 Blood Culture - Preliminary
Blood/Venous No Growth in 4 days- Final report to follow
08/10/23 09:13 Blood Culture - Preliminary
Blood/Venous No Growth in 4 days- Final report to follow
08/12/23 13:49 Anaerobic Culture - Preliminary
Abdomen Culture pending. Anaerobic cultures are examined after 3
days incubation. Additional information to follow.
08/12/23 16:15 Wound Culture - Preliminary
Abscess No growth
Gram Stain - Preliminary
Care Review
Plan reviewed with: Physician (Dr ashlie mcfadden)
[2023-08-14] MEDS: ROCEPHIN 2000 MG IV (13:05)
[2023-08-14] MEDS: STERILE WATER FOR INJECTION 20 ML IV (13:09)
--- NOTE | 2023-08-14 13:10 | CM ---
Addendum entered by Marina Jay 08/14/23 15:05:
CM spoke with Olimpia from [facility], team is reviewing patients benefits and will contact CM with tito. Olimpia will need PICC information once placed. Olimpia reports Swetha will be working over the weekend, will try for a discharge tomorrow after
patients dose to set up for Thursday admission.
Plan; awaiting return call from Olimpia with benefit cost, hopeful to discharge patient tomorrow with a Thursday set up.
Addendum entered by Marina Jay 08/14/23 14:28:
CM spoke with Loly from [facility], she is off today, CM will receive a call from the office. CM called to obtain update from office, re-faxed clinicals and referral over.
Original Note:
Per ID, patient will require IV antibiotics upon discharge. CM faxed clinical information to Loly at [facility] ([phone]), sent follow up message regarding referral sent. Patient seen bedside, reports he is hopeful to discharge home and is
missing his family. Patient reports he has not had home IV antibiotics in the past. CM will continue to follow for discharge planning needs.
Plan; referral sent to Loly with [facility], awaiting response from [facility] regarding acceptance.
[2023-08-14] MEDS: TYLENOL 650 MG PO ×2 (14:39→23:47)
[2023-08-14 15:13] VITALS: BP 131/81
--- NOTE | 2023-08-14 15:54 | W.PN.HOSP.TC ---
Today's Communication/Plan
-
picc line
d/c planning
Assessment / Plan
Assessment / Plan
MRI abdomen
1. 10 RIM-ENHANCING CYSTIC HEPATIC MASSES in the right lobe of the liver containing enhancing internal septations (the largest 6.1 cm). Diagnostic possibilities are (1) MULTIPLE HEPATIC ABSCESSES or (2) cystic hepatic metastases.
2. Mild hepatosplenomegaly.
3. Small 1.0 cm lesion in the right retroperitoneum posterior to the right kidney suspicious for a small soft tissue tumor or septic embolus.

1. Sigmoid diverticulitis
Presumed multiple hepatic abscess vs other
Sepsis
-New onset of abdominal pain/nausea/fever from
-No previous history of diverticular disease/diverticulitis - patent does stated of having episode of milder lower abd pain which subsided in past.
-Patient having high-grade fever and tachycardic in ER. Normal WBC
-CT abdomen pelvis showing sigmoid diverticulitis without complication
-Blood culture remains neg.
-s/p IRAD drainage of largest abscess pocket - 30cc purulent material drained, BENY drain in place - fluid culture neg so far.
-on Rocephin and Flagyl, to be maintained 6 weeks. PICC line order placed
-f/u in ID office in 3-4 weeks
2. Acute hypoxic respiratory insufficiency - improved
-patient gets hypoxic when have fever/chills
-stop further IVF
-if hepatic lesion suspected to be mass, will need to r/o VTE
3. Acute diarrhea -resolved
-possibly zosyn related
4. Multiple Liver lesion
Mild transaminitis
Elevated total bilirubin
Alcohol use
-Borderline elevated LFT and bilirubin level
-ALT 150 AST 81 total bili 1.6 ALP 170
-No major abnormalities in liver gallbladder on CT AP.
-GB/US showing multiple liver lesion. MRI report as above
4. Hypokalemia
-replace as needed.
5. Pre-diabetes
Obesity
-Glucose of 123, patient has not been eating much.
-Hbg a1c 5.9
-educated on weight loss/decreasing carb intake. advised to f/u with PCP post dischage.
6. Testosterone deficiency
-Reported monthly testosterone replacement therapy, last dose in September
-Patient currently in process of establishing with new office support clerk.
DVT prophylaxis -Lovenox
Full code
Anticipated Discharge: Within 24 hours
Subjective/Interval History
-
Date of Service: August 14, 2023
patient depressed
remains febrile in evening
apatite poor
no n/v
Objective Data
-
Labs:
Laboratory Results
08/14/23
06:26
WBC 12.3 H
Hgb 11.2 L
Hct 31.9 L
Plt Count 175
Sodium 136
Potassium 3.3 L
Chloride 100
Carbon Dioxide 26
BUN 23 H
Creatinine 0.6 L
Glucose 100 H
Calcium 8.5
Total Bilirubin 1.1
AST 57
ALT 77 H
Alkaline Phosphatase 204 H
Vital Signs:
Vital Signs
Temp Pulse Resp BP Pulse Ox
101.9 F H 103 18 131/81 93
08/14/23 15:13 08/14/23 15:13 08/14/23 15:13 08/14/23 15:13 08/14/23 15:13
I&O
08/13/23 08/14/23 08/15/23
06:59 06:59 06:59
Intake Total 2049 430 / 430
Output Total 40
Balance 2034 390 / 390
Review of Systems
-
Respiratory: Reports No Symptoms
Cardiac: Reports No Symptoms
Abdomen/GI: Denies Abdominal Pain, Nausea or Vomiting
Physical Exam
-
General: No Apparent Distress and Comfortable
HEENT: Negative Oxygen
Respiratory: Clear to Auscultation
Cardiac: Regular Rhythm and S1/S2; Negative Murmur or Rub
GI: Soft, Nontender and Normal Bowel Sounds
Musculoskeletal: No Edema
Neuro: Awake, Alert, Oriented, No Motor Deficits and Nonfocal/Grossly Intact
Psych: Calm
--- NOTE | 2023-08-14 15:56 | CM ---
Call received from Swetha at [facility] ([phone]) who advised that after benefits review it was determined that [facility] has no copay for IV ABX.
Swetha advised that plan is for discharge tomorrow (08/15/2023) with start of care 08/16/2023.
[2023-08-14] MEDS: LOVENOX 40 MG SC (17:58)
[2023-08-14] MEDS: ULTRAM 50 MG PO (19:32)
[2023-08-14 23:54] VITALS: BP 135/81
[2023-08-15 07:10] VITALS: BP 122/75
[2023-08-15 07:58] LABS: Hematocrit 31.6 % (39.0-52.0); Mean Corp Hgb Conc. 34.8 g/dL (33.0-37.0); Mean Corpuscular Hgb 30.9 pg (27.0-31.0); Mean Corpuscular Volume 88.8 fL (80.0-94.0); Mean Platelet Volume 11.3 fL (7.4-10.4); Platelet Count 227 10^3/uL (130-400); Red Blood Cell Count 3.56 10^6/uL (4.70-6.10); Red Cell Dist. Width 14.6 % (11.5-14.5); White Blood Cell Count 17.2 10^3/uL (4.8-10.8)
[2023-08-15 08:27] LABS: ALT (SGPT) 61 U/L (0-50); AST (SGOT) 34 U/L (17-59); Albumin 2.9 g/dl (3.5-5.0); Alkaline Phosphatase 200 U/L (38-126); Blood Urea Nitrogen 15 mg/dl (9-20); Calcium 8.4 mg/dl (8.4-10.2); Carbon Dioxide 29 mmol/L (22-30); Chloride 98 mmol/L (98-107); Estimated Creatinine Clearance > 125 ml/min; Glucose 102 mg/dl (70-99); Potassium 3.4 mmol/L (3.5-5.1); Sodium 133 mmol/L (135-145); eGFR > 60.00
[2023-08-15] MEDS: VITAMIN B-12 2000 MCG PO (08:34)
[2023-08-15] MEDS: VITAMIN D3 (cholecalciferol) 50 MCG PO (08:34)
[2023-08-15] MEDS: FLAGYL 500 MG PO (08:34)
[2023-08-15] MEDS: VITAMIN C 3000 MG PO (08:34)
--- NOTE | 2023-08-15 10:56 | W.PN.ID1 ---
Date of Service
Date of Service: August 15, 2023
Today's Communication
ertapenem
Assessment / Plan
Hepatic Abscesses - multifocal
- blood cultures x2 in progress no growth to date
- abscess culture gram stain rare GNR, no growth to date - remains preliminary
- TTE - no vegetations
- when drain output consistent </= 15 ccs x3 days then patient to call IR for reassessment
- agree with eventual colonoscopy
- PICC line
- switch to IV ertapenem only tentatively x6 more weeks; stop cefriaxone and metro
- follow up in office in 3-4 weeks
Chief Complaint
-: Other (hepatic abscess)
Subjective / Review of Systems
persistent fevers
bp stable
further increased wbc count
cr stable
culture no growth
'Im feeling better'
Vital Signs / Physical Exam
Vital Signs
Vital Signs
Temp Pulse Resp BP Pulse Ox
99.8 F 97 16 122/75 94
08/15/23 07:10 08/15/23 07:10 08/15/23 07:10 08/15/23 07:10 08/15/23 10:09
Physical Exam
Constitutional: No Acute Distress
Cardiovascular: Regular Rate and S1/S2; Negative Murmur or Rub
Pulmonary: Clear and Symmetric; Negative Wheezes or Rales
Gastrointestinal: Soft, Non Tender, Non Distended and Normal Bowel Sounds
Skin: Warm and Dry; Negative Rash or Jaundice
Lines: PICC
Objective Data
Lab Data
Lab Results
08/15/23 07:30
08/15/23 07:30
PT 14.8 Sec (11.4-14.6) H 08/12/23 13:19
INR 1.15 08/12/23 13:19
Estimated Creat Clear > 125 ml/min 08/15/23 07:30
Lactic Acid Cancelled 08/11/23 01:12
Total Bilirubin 1.0 mg/dl (0.2-1.3) 08/15/23 07:30
AST 34 U/L (17-59) 08/15/23 07:30
ALT 61 U/L (0-50) H 08/15/23 07:30
Alkaline Phosphatase 200 U/L (38-126) H 08/15/23 07:30
Most recent labs reviewed.
Micro Results:
08/10/23 09:44 Blood Culture - Final
Blood/Venous No Growth - Final Report
08/10/23 09:13 Blood Culture - Final
Blood/Venous No Growth - Final Report
08/12/23 16:15 Wound Culture - Preliminary
Abscess No growth
Gram Stain - Preliminary
08/12/23 13:49 Anaerobic Culture - Preliminary
Abdomen Culture pending. Anaerobic cultures are examined after 3
days incubation. Additional information to follow.
Care Review
Plan reviewed with: Physician (Dr Tan - vianney nair, dispo)
[2023-08-15 11:44] VITALS: BP 130/76
[2023-08-15] MEDS: STERILE WATER FOR INJECTION IV (11:50)
[2023-08-15] MEDS: INVANZ 60 MG IV (13:05)
--- NOTE | 2023-08-15 13:55 | W.PN.HOSP.TC ---
Today's Communication/Plan
-
abx changed to ertapenem
continue other care
d/c post home infusion setup - likely thursday
Assessment / Plan
Assessment / Plan
MRI abdomen
1. 10 RIM-ENHANCING CYSTIC HEPATIC MASSES in the right lobe of the liver containing enhancing internal septations (the largest 6.1 cm). Diagnostic possibilities are (1) MULTIPLE HEPATIC ABSCESSES or (2) cystic hepatic metastases.
2. Mild hepatosplenomegaly.
3. Small 1.0 cm lesion in the right retroperitoneum posterior to the right kidney suspicious for a small soft tissue tumor or septic embolus.

1. Sigmoid diverticulitis
Presumed multiple hepatic abscess vs other
Sepsis
-New onset of abdominal pain/nausea/fever from
-No previous history of diverticular disease/diverticulitis - patent does stated of having episode of milder lower abd pain which subsided in past.
-Patient having high-grade fever and tachycardic in ER. Normal WBC
-CT abdomen pelvis showing sigmoid diverticulitis without complication
-Blood culture remains neg.
-s/p IRAD drainage of largest abscess pocket - 30cc purulent material drained, BENY drain in place - fluid culture neg so far.
-With ongoing fever and increasing WBC count ID planning to change home antibiotic regimen to ertapenem. Initially patient was planned to be discharged home today although home infusion agency will not be able to arrange antibiotic until Thursday.
Discharge to be held
2. Acute hypoxic respiratory insufficiency - Resolved
-patient gets hypoxic when havd fever/chills
3. Acute diarrhea -resolved
-possibly zosyn related
4. Multiple Liver lesion
Mild transaminitis
Elevated total bilirubin
Alcohol use
-Borderline elevated LFT and bilirubin level
-ALT 150 AST 81 total bili 1.6 ALP 170 at admission
-No major abnormalities in liver gallbladder on CT AP.
-GB/US showing multiple liver lesion. MRI report as above
4. Hypokalemia
-replace as needed.
5. Pre-diabetes
Obesity
-Glucose of 123, patient has not been eating much.
-Hbg a1c 5.9
-educated on weight loss/decreasing carb intake. advised to f/u with PCP post dischage.
6. Testosterone deficiency
-Reported monthly testosterone replacement therapy, last dose in September
-Patient currently in process of establishing with new differential tester.
7. Hyponatremia
-mild, monitor
Normocytic anemia
DVT prophylaxis -Lovenox
Full code
Anticipated Discharge: 24 - 48 hours
Subjective/Interval History
-
Date of Service: August 15, 2023
Continues to have fever overnight
Overall feeling better
Denies abdominal pain/nausea/vomiting
Objective Data
-
Labs:
Laboratory Results
08/15/23
07:30
WBC 17.2 H
Hgb 11.0 L
Hct 31.6 L
Plt Count 227 D
Sodium 133 L
Potassium 3.4 L
Chloride 98
Carbon Dioxide 29
BUN 15
Creatinine 0.6 L
Glucose 102 H
Calcium 8.4
Total Bilirubin 1.0
AST 34
ALT 61 H
Alkaline Phosphatase 200 H
Vital Signs:
Vital Signs
Temp Pulse Resp BP Pulse Ox
98.6 F 93 18 130/76 93
08/15/23 11:44 08/15/23 11:44 08/15/23 11:44 08/15/23 11:44 08/15/23 11:44
I&O
08/14/23 08/15/23 08/16/23
06:59 06:59 06:59
Intake Total 430 / 430 490 / 490
Output Total 40 / 40 15
Balance 390 / 390 475 / 475
Review of Systems
-
Respiratory: Reports No Symptoms
Cardiac: Reports No Symptoms
Abdomen/GI: Reports No Symptoms
Physical Exam
-
General: No Apparent Distress and Comfortable
HEENT: Negative Oxygen
Respiratory: Clear to Auscultation
Cardiac: Regular Rhythm and S1/S2; Negative Murmur or Rub
GI: Soft, Nontender and Normal Bowel Sounds
Musculoskeletal: No Edema
Neuro: Awake, Alert, Oriented, No Motor Deficits and Nonfocal/Grossly Intact
Psych: Calm
--- NOTE | 2023-08-15 14:21 | CM ---
Patient with Dx Sigmoid diverticulitis, Presumed multiple hepatic abscess vs other, Sepsis. IV ceftriaxone switched to IV ertapenum today. PICC placed. BENY drain in place.
Patient was all set up with [facility] for d/c home today with IV ceftriaxone, when message was received from Dr Hernandez with script for IV ertapenum instead.
Spoke with Melissa, Intake & Ed, pharmacist at [facility]; new script and PICC line info faxed to them. Per the pharmacist, they are unable to have that ready for delivery until Thu08/17/23. [facility] nurse visit that was set up this morning
for Thursday was cancelled. CM will need to speak with [facility] on Thursday to confirm nurse availability for teaching visit. Benefit check for ertapenum will be completed on Thursday.
Met with patient again after new script was received to convey that [facility] needed to do new benefit check and prepare new Abx, and therefore they would not be able to start him on home IV Abx this weekend. Patient visibly upset and
disappointed -CM provided emotional support.
Confirmed with Dr Tan BENY Drain to remain in at d/c.
Offered VN for BENY drain care and [facility]
Message to IDA Morrison Liaison re; referral.
Plan confirm with [facility] on Thursday results of new benefit check, confirmation of delivery of med/supplies on Thursday, and nurse availability to do teaching visit.
Plan home with [facility] for home IV infusion, and [facility]
[2023-08-15 15:04] VITALS: BP 132/83
[2023-08-15] MEDS: LOVENOX SC (17:33)
[2023-08-15 22:45] VITALS: BP 132/82
[2023-08-16 07:00] VITALS: BP 101/71
[2023-08-16 07:03] LABS: Hematocrit 31.5 % (39.0-52.0); Hemoglobin 10.7 g/dL (13.0-18.0); Mean Corpuscular Hgb 30.9 pg (27.0-31.0); Mean Platelet Volume 11.2 fL (7.4-10.4); Platelet Count 262 10^3/uL (130-400); Red Blood Cell Count 3.46 10^6/uL (4.70-6.10); Red Cell Dist. Width 14.8 % (11.5-14.5); White Blood Cell Count 17.3 10^3/uL (4.8-10.8)
[2023-08-16 07:56] LABS: ALT (SGPT) 47 U/L (0-50); AST (SGOT) 35 U/L (17-59); Albumin 2.9 g/dl (3.5-5.0); Alkaline Phosphatase 182 U/L (38-126); Blood Urea Nitrogen 14 mg/dl (9-20); Calcium 8.6 mg/dl (8.4-10.2); Carbon Dioxide 26 mmol/L (22-30); Chloride 99 mmol/L (98-107); Estimated Creatinine Clearance > 125 ml/min; Glucose 97 mg/dl (70-99); Potassium 3.7 mmol/L (3.5-5.1); Sodium 133 mmol/L (135-145); Total Protein 5.9 g/dl (6.3-8.2); eGFR > 60.00
[2023-08-16] MEDS: VITAMIN B-12 2000 MCG PO (09:32)
[2023-08-16] MEDS: VITAMIN D3 (cholecalciferol) 50 MCG PO (09:32)
[2023-08-16] MEDS: VITAMIN C 3000 MG PO (09:32)
[2023-08-16] MEDS: INVANZ 60 MG IV (12:21)
[2023-08-16] MEDS: STERILE WATER FOR INJECTION IV (13:11)
--- NOTE | 2023-08-16 13:48 | W.PN.HOSP.TC ---
Today's Communication/Plan
-
see note
discharge tomorrow
Assessment / Plan
Assessment / Plan
MRI abdomen
1. 10 RIM-ENHANCING CYSTIC HEPATIC MASSES in the right lobe of the liver containing enhancing internal septations (the largest 6.1 cm). Diagnostic possibilities are (1) MULTIPLE HEPATIC ABSCESSES or (2) cystic hepatic metastases.
2. Mild hepatosplenomegaly.
3. Small 1.0 cm lesion in the right retroperitoneum posterior to the right kidney suspicious for a small soft tissue tumor or septic embolus.

1. Sigmoid diverticulitis
Presumed multiple hepatic abscess vs other
Sepsis
-New onset of abdominal pain/nausea/fever from
-No previous history of diverticular disease/diverticulitis - patent does stated of having episode of milder lower abd pain which subsided in past.
-Patient having high-grade fever and tachycardic in ER. Normal WBC
-CT abdomen pelvis showing sigmoid diverticulitis without complication
-Blood culture remains neg.
-s/p IRAD drainage of largest abscess pocket - 30cc purulent material drained, BENY drain in place - fluid culture neg so far.
-Antibiotic adjusted to ertapenem. Home infusion agency wound we will arrange it till Thursday
-No fever overnight. wbc remains approx 17k
-BENY drain not putting out much, discussed with IRAD to maintain for 1 week nonetheless for any delayed drainage. Patient to follow-up with IRAD for pulling out BENY drain.
2. Acute hypoxic respiratory insufficiency - Resolved
-patient gets hypoxic when havd fever/chills
3. Acute diarrhea -resolved
-possibly zosyn related
4. Multiple Liver lesion
Mild transaminitis
Elevated total bilirubin
Alcohol use
-Borderline elevated LFT and bilirubin level
-ALT 150 AST 81 total bili 1.6 ALP 170 at admission
-No major abnormalities in liver gallbladder on CT AP.
-GB/US showing multiple liver lesion. MRI report as above
4. Hypokalemia
-replace as needed.
5. Pre-diabetes
Obesity
-Glucose of 123, patient has not been eating much.
-Hbg a1c 5.9
-educated on weight loss/decreasing carb intake. advised to f/u with PCP post dischage.
6. Testosterone deficiency
-Reported monthly testosterone replacement therapy, last dose in September
-Patient currently in process of establishing with new calender operator helper.
7. Hyponatremia
-mild, monitor
Normocytic anemia
DVT prophylaxis -Lovenox
Full code
Anticipated Discharge: Within 24 hours
Subjective/Interval History
-
Date of Service: August 16, 2023
No issues overnight
No fever overnight
Objective Data
-
Labs:
Laboratory Results
08/16/23
06:28
WBC 17.3 H
Hgb 10.7 L
Hct 31.5 L
Plt Count 262
Sodium 133 L
Potassium 3.7
Chloride 99
Carbon Dioxide 26
BUN 14
Creatinine 0.5 L
Glucose 97
Calcium 8.6
Total Bilirubin 1.0
AST 35
ALT 47
Alkaline Phosphatase 182 H
Vital Signs:
Vital Signs
Temp Pulse Resp BP Pulse Ox
99.4 F 101 18 101/71 93
08/16/23 07:00 08/16/23 07:00 08/16/23 07:00 08/16/23 07:00 08/16/23 07:00
I&O
08/15/23 08/16/23 08/17/23
06:59 06:59 06:59
Intake Total 490 / 490 605 / 605
Output Total
Balance 475 / 475 605 / 605
Review of Systems
-
Respiratory: Reports No Symptoms
Cardiac: Reports No Symptoms
Abdomen/GI: Reports No Symptoms
Physical Exam
-
General: No Apparent Distress and Comfortable
HEENT: Negative Oxygen
Respiratory: Clear to Auscultation
Cardiac: Regular Rhythm and S1/S2; Negative Murmur or Rub
GI: Soft, Nontender and Normal Bowel Sounds
Musculoskeletal: No Edema
Neuro: Awake, Alert, Oriented, No Motor Deficits and Nonfocal/Grossly Intact
Psych: Calm
[2023-08-16 15:07] VITALS: BP 115/81
[2023-08-16] MEDS: LOVENOX SC (18:20)
[2023-08-16 23:52] VITALS: BP 119/69
[2023-08-17 07:00] VITALS: BP 121/75
[2023-08-17] MEDS: VITAMIN C 3000 MG PO (07:40)
[2023-08-17] MEDS: VITAMIN B-12 2000 MCG PO (07:41)
[2023-08-17] MEDS: VITAMIN D3 (cholecalciferol) 50 MCG PO (07:41)
[2023-08-17 10:00] LABS: % Basophils 0.3 % (0-2); % Immature Granulocytes 2.3 % (0-0.5); % Lymphocytes 10.9 % (20.5-51.1); % Monocytes 5.7 % (1.7-9.3); % Neutrophils 79.8 % (42.2-75.2); Absolute Basophils 0.1 10^3/uL (0-0.2); Absolute Eosinophils 0.2 10^3/uL (0-0.7); Absolute Immature Granulocytes 0.4 10^3/uL (0-0.05); Absolute Lymphocytes 1.8 10^3/uL (1.2-3.4); Absolute Monocytes 0.9 10^3/uL (0.1-0.6); Absolute Neutrophils 13.1 10^3/uL (1.4-6.5); Hematocrit 31.9 % (39.0-52.0); Hemoglobin 10.6 g/dL (13.0-18.0); Mean Corp Hgb Conc. 33.2 g/dL (33.0-37.0); Mean Corpuscular Hgb 30.3 pg (27.0-31.0); Mean Corpuscular Volume 91.1 fL (80.0-94.0); Mean Platelet Volume 10.8 fL (7.4-10.4); Nucleated Red Blood Cells % 0 % (-); Platelet Count 319 10^3/uL (130-400); White Blood Cell Count 16.4 10^3/uL (4.8-10.8)
[2023-08-17 10:17] LABS: ALT (SGPT) 39 U/L (0-50); AST (SGOT) 32 U/L (17-59); Albumin 3.1 g/dl (3.5-5.0); Alkaline Phosphatase 164 U/L (38-126); Blood Urea Nitrogen 13 mg/dl (9-20); Calcium 8.8 mg/dl (8.4-10.2); Carbon Dioxide 28 mmol/L (22-30); Chloride 99 mmol/L (98-107); Estimated Creatinine Clearance > 125 ml/min; Glucose 108 mg/dl (70-99); Potassium 3.9 mmol/L (3.5-5.1); Sodium 135 mmol/L (135-145); Total Bilirubin 0.8 mg/dl (0.2-1.3); Total Protein 6.3 g/dl (6.3-8.2); eGFR > 60.00
--- NOTE | 2023-08-17 10:24 | W.PN.HOSP.TC ---
Today's Communication/Plan
-
dc to home today after home infusion teaching
Assessment / Plan
Assessment / Plan
MRI abdomen
1. 10 RIM-ENHANCING CYSTIC HEPATIC MASSES in the right lobe of the liver containing enhancing internal septations (the largest 6.1 cm). Diagnostic possibilities are (1) MULTIPLE HEPATIC ABSCESSES or (2) cystic hepatic metastases.
2. Mild hepatosplenomegaly.
3. Small 1.0 cm lesion in the right retroperitoneum posterior to the right kidney suspicious for a small soft tissue tumor or septic embolus.
Assessment:
Sigmoid diverticulitis
Presumed multiple hepatic abscess vs other
Sepsis POA (fever leukocytosis)
- s/p IRAD drainage of largest abscess pocket. Continue at discharge and f/u with IR in 1 week
- ID following; placed on Ertapenem with PICC line x 6 weeks total. F/u in 3-4 weeks OP
Acute hypoxic respiratory insufficiency - Resolved
Acute diarrhea - resolved
Multiple Liver lesion
Mild transaminitis
Elevated total bilirubin
Alcohol use
- LFTS have normalized
- No major abnormalities in liver gallbladder on CT AP.
- GB/US showing multiple liver lesion. MRI report as above
Hypokalemia
- replace as needed.
Pre-diabetes
Obesity
- Hbg a1c 5.9
- educated on weight loss/decreasing carb intake. advised to f/u with PCP post dischage.
Testosterone deficiency
- Reported monthly testosterone replacement therapy, last dose in September
- Patient currently in process of establishing with new line installation supervisor.
Hyponatremia
- resolved
Normocytic anemia
DVT prophylaxis -Lovenox
Full code
More than 30 minutes spent in discharge including
Final examination of the patient
Summarizing hospital stay
Instructions for continuing care to all relevant caregivers
Preparation of discharge records, prescriptions, and referral forms
Total time spent (in minutes): 41
Anticipated Discharge: Today
Subjective/Interval History
-
Date of Service: August 17, 2023
doing well, no fevers
Objective Data
-
Labs:
Laboratory Results
08/17/23
09:06
WBC 16.4 H
Hgb 10.6 L
Hct 31.9 L
Plt Count 319 D
Sodium 135
Potassium 3.9
Chloride 99
Carbon Dioxide 28
BUN 13
Creatinine 0.6 L
Glucose 108 H
Calcium 8.8
Total Bilirubin 0.8
AST 32
ALT 39
Alkaline Phosphatase 164 H
Vital Signs:
Vital Signs
Temp Pulse Resp BP Pulse Ox
98.3 F 76 18 121/75 95
08/17/23 07:00 08/17/23 07:00 08/17/23 07:00 08/17/23 07:00 08/17/23 07:00
I&O
08/16/23 08/17/23 08/18/23
06:59 06:59 06:59
Intake Total 605 / 605 1530 / 1530
Output Total 2 / 2
Balance 605 / 605 1528 / 1528
Physical Exam
-
General: No Apparent Distress
HEENT: Normocephalic and Atraumatic
Respiratory: Negative Wheezes
Cardiac: Regular Rhythm and S1/S2
GI: Soft
Musculoskeletal: No Edema
Neuro: AO x 3
Hematologic / Lymphatic: No Lymphadenopathy
Psych: Calm
Data Reviewed
-
Total Time Spent with Patient (in minutes): 41
Labs: Labs Reviewed by me
--- NOTE | 2023-08-17 10:36 | W.DS.TRANS ---
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
-
Discharge Instructions:
Discharge Diagnosis/Procedures Hepatic abscess, drain placement, Sepsis,
sigmoid diverticulitis, Hypoxic respiratory
insufficiency resolved
Diet Low Fat,Regular
Activity As tolerated
Driving Restrictions As prior to admission
Bathing Restrictions OK to Shower
Other Services VN
Instructions:
Stand-Alone Forms:
Changes to Home Medications: No
Discharge Medications:
DC Medications w/original date entered in [facility]
ascorbic acid (vitamin C) 1,000 mg tablet (Vitamin C) 3 g PO Daily Supplement 08/10/23
cholecalciferol (vitamin D3) 50 mcg (2,000 unit) tablet (Vitamin D3) 50 mcg PO DAILY Supplement 08/10/23
cyanocobalamin (vitamin B-12) 1,000 mcg tablet 2,000 mcg PO DAILY Supplement 08/10/23
acetaminophen 650 mg tablet,extended release (Tylenol 8 Hour) 650 mg PO Q8H PRN Mild pain OR Temp > 100.5F #30 tabs 08/15/23
Ertapenem [Invanz] 1,000 mg 100 mls/hr IV Q24H 08/17/23
Home Medication Changes
Pending Results: No
Total time spent discharging patient (in min): 41
[2023-08-17] MEDS: INVANZ 60 MG IV (11:01)
--- NOTE | 2023-08-17 11:21 | CM ---
CM spoke with Loly from [facility], will be at hospital around 12:30 p.m. to do teaching with patient. CM will update [facility] on patient discharge. CM will continue to follow for discharge planning needs.
Plan; home with [facility] IV antibiotics and [facility].
--- NOTE | 2023-08-17 12:36 | PTCARENOTE ---
Reviewed discharge instructions with patient including all follow up visits required. Patient verbalizes understanding of teaching. Patient will have antibiotic and supplies delivered from [facility] to his home today and [facility]
for antibiotics and PICC care. Patient has ride with after [facility] arrives and completes teaching.
--- NOTE | 2023-08-17 13:18 | PTCARENOTE ---
[facility] staff completed education with patient. Patient denies questions. Denies any questions regarding discharge instructions. Patient awaiting to transport him home.
--- NOTE | 2023-08-17 14:21 | PTCARENOTE ---
Patient left via wheelchair with staff escort and .
== END 2023-08-17 14:23 | disposition home health service (06) | DRG 871 ==
LOC: 4 EAST ACU 12:26
PROVIDERS: Nurse Practitioner Family; Radiology Vascular & Interventional Radiology; ADMITTING PHYSICIAN Hospitalist; ATTENDING PHYSICIAN Internal Medicine; EMERGENCY PHYSICIAN Emergency Medicine; FAMILY PHYSICIAN Family Medicine; OTHER PHYSICIAN Internal Medicine; OTHER PHYSICIAN Student in an Organized Health Care Education/Training Program
PROC: 0D9 Gastrointestinal System, Drainage (ICD-10-PCS; 2023-08-12)
DX: A41.9 Sepsis, unspecified organism (principal); K75.0 Abscess of liver; K57.32 Diverticulitis of large intestine without perforation or abscess without bleeding; E87.1 Hypo-osmolality and hyponatremia; E87.6 Hypokalemia; E66.9 Obesity, unspecified; E29.1 Testicular hypofunction; D64.9 Anemia, unspecified; R06.89 Other abnormalities of breathing; R09.02 Hypoxemia; Z68.33 Body mass index [BMI] 33.0-33.9, adult; Z11.52 Encounter for screening for COVID-19
CPT/HCPCS: 49405; 71045; 71046; 74177; 74183; 76700; 80053; 82105; 83036; 83605; 83690; 85025; 85027; 85610; 86704; 86706; 86708; 86709; 86803; 87040; 87070; 87075; 87205; 87340; 87811; 93005; 93306; 96361; 96365; 96375; 99152; 99153; 99291; A9575; C1729; C1769; J1335; Q9967

== ENCOUNTER → 2023-09-30 06:34 | Day surgery (SDC) | payer BC, SELFPAY | LOC: GI 06:34 | PROVIDERS: ATTENDING PHYSICIAN Internal Medicine | DX: Z12.11 Encounter for screening for malignant neoplasm of colon (principal); K63.5 Polyp of colon; K51.40 Inflammatory polyps of colon without complications; K57.30 Diverticulosis of large intestine without perforation or abscess without bleeding; K62.1 Rectal polyp; R93.3 Abnormal findings on diagnostic imaging of other parts of digestive tract; Z87.19 Personal history of other diseases of the digestive system | CPT/HCPCS: 45385; 45380; 88305 ==